=== PATIENT | female | born 2000 | race African-American/Black ===

== ENCOUNTER 2019-06-17 09:35 | Emergency (ER) | payer SELFPAY ==
[~2019-06-17] VITALS: Ht 162.6 cm; Wt 56.7 kg
[2019-06-17] MEDS ORDERED: SODIUM CHLORIDE 0.9% 1,000ML IVBOLUS ONE (10:30)
[2019-06-17 10:31] LABS: BASOPHILS # (AUTO) 0.02 x10^3/uL (0-0.3); BASOPHILS % (AUTO) 0 % (0-1); EOSINOPHILS # (AUTO) 0.02 x10^3/uL (0-0.8); EOSINOPHILS % (AUTO) 0 % (1-7); LYMPHOCYTES % (AUTO) 13 % (22-44); MD NO; MEAN CORPUSCULAR HEMOGLOBIN 25.7 pg (27.0-34.8); MEAN CORPUSCULAR HGB CONC 32.6 g/dL (32.4-35.8); MEAN CORPUSCULAR VOLUME 78.9 fL (80-100); MEAN PLATELET VOLUME 8.7 fL (7.4-10.4); MONOCYTES # (AUTO) 0.39 x10^3/uL (0-1.4); MONOCYTES % (AUTO) 8 % (2-9); NEUTROPHILS # (AUTO) 3.65 x10^3/uL (1.8-8.0); NEUTROPHILS % (AUTO) 78 % (42-75); PLATELET COUNT 255 x10^3/uL (130-400); RED BLOOD COUNT 5.41 x10^6/uL (3.82-5.3); RED CELL DISTRIBUTION WIDTH 16.1 % (9.6-15.2)
[2019-06-17 10:42] LABS: ALANINE AMINOTRANSFERASE 13 U/L (12-78); ALBUMIN 4.1 g/dL (3.4-5.0); ANION GAP 8 mmol/L (5-15); CALCIUM 8.9 mg/dL (8.5-10.1); CHLORIDE 108 mmol/L (98-107); CREATININE 0.89 mg/dL (0.55-1.02)
[2019-06-17 10:47] LABS: ALKALINE PHOSPHATASE 82 U/L (45-117); BILIRUBIN,TOTAL 0.4 mg/dL (0.2-1.0); TOTAL PROTEIN 8.7 g/dL (6.4-8.2)
[2019-06-17 10:59] LABS: RAPID INFLUENZA A Negative (Negative); RAPID INFLUENZA B Negative (Negative)
[2019-06-17] MEDS ORDERED: KETOROLAC 30 MG/1 ML IVPush ONE (11:00)
[2019-06-17] MEDS ORDERED: KETOROLAC 30 MG/1 ML ONE (11:01)
[2019-06-17 11:32] LABS: MICROSCOPIC NOT IND
[2019-06-17 11:36] LABS: CULTURE INDICATED? NO
[2019-06-17 11:55] VITALS: BP 119/66
--- NOTE | 2019-06-17 11:55 | NUR ---
PT RESTING IN [place]. FRIEND BEDSIDE. NO DISTRESS NOTED. NO NEEDS AT THIS TIME
== END 2019-06-17 12:21 | disposition home or self-care (01) ==
LOC: ED 10:14
DX: E86.0 Dehydration (principal); B34.9 Viral infection, unspecified; F17.200 Nicotine dependence, unspecified, uncomplicated
CPT/HCPCS: 36415; 71045; 80053; 81003; 84703; 85025; 87400; 96374; 99284; J1885; J7030